=== PATIENT | female | born 1985 | race Caucasian/White ===

== ENCOUNTER → 2016-12-17 | Day surgery (SDC) | payer OTHER ==
[~2016-12-17] MED LIST: BUPIVACAINE HCL PF 0.75% 30 ML VIAL ONE; BUPIVACAINE/EPINEPHRINE 0.25% PF 30 ML VIAL ONE; CYCL-36 PO; EPINEPHrine HCL (1:1000) 30 MG/30 ML VIAL ONE; HYDR-3533 PO; IBUP-232 PO; LACTATED RINGER'S 1000 ML INJ 1,000 ML ONE; LIDOCAINE 1.5%/EPINEPHrine 1:200,000 PF SOLN 30 ML AMP ONE; LORT5TAB PO; MIDAZOLAM HCL 5 MG/ML VIAL (1 ML) ONE; ONDANSETRON HCL 4 MG/2 ML VIAL IV PUSH ONE; PROPOFOL 200 MG/20 ML AMP IV ONE; Z.0.BCPILL PO; ceFAZolin INJ 1,000 MG VIAL ONE
--- NOTE | 2016-12-22 07:31 | MP ---
cc: MICHEAL SKY M.D. 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 SURGEON Micheal Sky MD EXERCISE PLANNER KARISSA Noguera The surgical procedure was assisted by my Advanced Registered Nurse Practitioner. My SPORTS MEDICINE SPECIALIST presence was necessary throughout this case for the manipulation and positioning of the surgical extremity. My SPORTS MEDICINE SPECIALIST was assisting me throughout the duration of this procedure. The skill set of an Advance Registered Nurse Practitioner was medically necessary to complete this procedure. During the surgical case, the surgical instruments inspector was working at the back table and the Advance Registered Nurse Practitioner was directly assisting me. PROCEDURE Left shoulder arthroscopy with extensive debridement of labrum and subacromial decompression with partial acromioplasty. ANESTHESIA General anesthesia with an interscalene block. PROCEDURE The patient was brought back to the operative theater after regional anesthesia had been administered. She then had general anesthesia administered. She had intravenous Ancef given. She was placed into a lateral decubitus position with an axillary roll and well-padded down leg. The left upper extremity was prepped and draped in usual sterile fashion. We started with a standard posterior approach for the portal. The diagnostic arthroscopy revealed no chondromalacia of the humeral head. 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 No loose bodies were noted in the axillary pouch. The biceps tendon was found to have what looked like an old injury that was mostly healed right at the junction of the biceps tendon and the superior labrum. We did create an anterior portal under spinal needle visualization. We debrided this area. We found that about 75% of the biceps tendon itself had very good anchor point into the superior labrum especially the posterior part of the biceps looked very normal. The labrum itself superiorly had very nice anchor into the glenoid. There was a little bit of fraying which was debrided. The anterior labrum was fairly unremarkable except for some mild fraying which was debrided and the posterior superior labrum likewise looked good with just a small amount of fraying which was debrided. On probing, the anchor point of the labrum, there was no instability. The subscapularis tendon was intact. The undersurface of the rotator cuff tear was pretty unremarkable except for one small area right by the interval underneath where the biceps was starting to articulated with the humeral head. There was some slight fraying which was debrided. The arthroscope was placed into the subacromial space. There was quite a bit of bursitis. This bursitis was fairly extensive and connected between the rotator cuff and also the subdeltoid fascia. There was spurring of the anterior acromion noted as well with significant thickening of the coracoacromial ligament. We performed extensive subacromial bursectomy until we able to visualize the cuff completely which showed no tearing and it was intact and in good condition. We did remove the spur of the acromion using an oscillating and forward shaver. This created a very nice space for the rotator cuff. We did co-plane the undersurface of the clavicle as well using oscillating shaver. Portals were closed with 2-0 Vicryl followed by 3-0 nylon. The arm was dressed. The patient placed into a sling. Postop plan is to start early range of motion. MD ABRIL Gonzales/NATALY /1:56 PM /7:19 AM
== END | disposition home or self-care (01) ==
LOC: ESDC 10:58
PROVIDERS: ATTEND Orthopaedic Surgery
DX: S43.432A Superior glenoid labrum lesion of left shoulder, initial encounter (principal); M75.42 Impingement syndrome of left shoulder
CPT/HCPCS: 01630; 01991; 29823; 29826; 64417; J0171; J0690; J2250; J2405; J3010; J7120